=== PATIENT | female | born 1970 | race Caucasian/White ===

== ENCOUNTER → 2017-07-17 | Outpatient (CLI) | payer BC, OTHER ==
[2017-07-17 13:52] LABS: BLOOD UREA NITROGEN 5 mg/dl (7-18); BUN/CREATININE RATIO 7.5 (10-20); CALCIUM 9.1 mg/dl (8.5-10.1); CARBON DIOXIDE 24 mmol/L (21-32); CHLORIDE 108 mmol/L (98-107); CREATININE 0.67 mg/dl (0.60-1.20); GLUCOSE 97 mg/dl (70-99); POTASSIUM 4.1 mmol/L (3.5-5.1); SODIUM 140 mmol/L (136-145)
[2017-07-17 13:54] LABS: ALT/SGPT 30 U/L (12-78); CHOLESTEROL 174 mg/dl (0-200); CHOLESTEROL/HDL RATIO 3.6; HDL CHOLESTEROL 48 mg/dl; LDL CHOLESTEROL CALCULATED 97 mg/dl; TRIGLYCERIDES 144 mg/dl (0-150); VERY LOW DENSITY LIPOPROT CALC 29 mg/dl
== END | disposition home or self-care (01) ==
LOC: C.LABMFLN 08:36
PROVIDERS: ATTEND Family Medicine
DX: Z00.00 Encounter for general adult medical examination without abnormal findings (principal); I10 Essential (primary) hypertension; E78.5 Hyperlipidemia, unspecified; G62.9 Polyneuropathy, unspecified; E03.9 Hypothyroidism, unspecified; E53.8 Deficiency of other specified B group vitamins

== ENCOUNTER → 2017-10-23 | Outpatient (CLI) | payer BC, OTHER ==
[2017-10-23 18:08] LABS: THYROID STIMULATING HORMONE 5.7 uIu/ml (0.300-4.500)
== END | disposition home or self-care (01) ==
LOC: C.LABMFLN 14:42
PROVIDERS: ATTEND Family Medicine
DX: E03.9 Hypothyroidism, unspecified (principal)

== ENCOUNTER 2017-12-11 06:12 | Inpatient (IN) | payer BC, OTHER ==
[2017-11-30 12:54] VITALS: BMI 29.0
--- NOTE | 2017-11-30 13:22 | PAT Medication Instructions ---
Service Date Nov 30, 2017. Current Home Medication List Atenolol (Tenormin), 50 MG PO QAM Cyanocobalamin (Vitamin B12 500MCG), 250 MCG PO QAM Duloxetine HCl (Cymbalta), 1 CAP PO QAM Fenofibrate (Tricor ), 145 MG PO QAM Fexofenadine-Pseudoephedrine (Amee-D 24 Hour Allergy), 1 TAB PO BID PRN for RN Hydrocodone/Acetaminophen 7.5MG/325MG ([place] 7.5MG/325MG), 1 TAB PO TID PRN for N Levothyroxine Sodium (Levothyroxine Sodium), 1 TAB PO QAM Pyridoxine (Vitamin B6), 100 MG PO BID Tizanidine (Zanaflex), 2-4 MG PO BID Medication Instructions For Your Scheduled Surgery - Hold the following medications the morning of surgery: Tizanidine (Zanaflex), 2-4 MG PO BID Pyridoxine (Vitamin B6), 100 MG PO BID Fexofenadine-Pseudoephedrine (Amee-D 24 Hour Allergy), 1 TAB PO BID PRN for RN Fenofibrate (Tricor ), 145 MG PO QAM Cyanocobalamin (Vitamin B12 500MCG), 250 MCG PO QAM - Take the following medications the morning of surgery with a sip of water: Levothyroxine Sodium (Levothyroxine Sodium), 1 TAB PO QAM Hydrocodone/Acetaminophen 7.5MG/325MG ([place] 7.5MG/325MG), 1 TAB PO TID PRN for N (okay to take up to 4 hours prior to surgery if needed) Duloxetine HCl (Cymbalta), 1 CAP PO QAM Atenolol (Tenormin), 50 MG PO QAM - Take the following medications as scheduled the night before surgery: Tizanidine (Zanaflex), 2-4 MG PO BID Pyridoxine (Vitamin B6), 100 MG PO BID Hydrocodone/Acetaminophen 7.5MG/325MG ([place] 7.5MG/325MG), 1 TAB PO TID PRN for N (if needed) If you have any questions please call us at [phone] or [phone] or [phone]
[2017-11-30 13:29] LABS: BASO % 0.8 %; BASO ABS # 0.05 K/uL (0-0.2); EOS % 5.1 %; EOS ABS # 0.32 K/uL (0-0.5); HEMATOCRIT 42.3 % (37-47); HEMOGLOBIN 14.3 g/dL (12.0-16.0); IG# 0.02 K/uL (0.00-0.02); LYMPH % 22.4 %; LYMPH ABS # 1.41 K/uL (1.2-3.4); MEAN CELL VOLUME 88.7 fL (80-100); MEAN CORPUSCULAR HGB CONC 33.8 g/dl (32-36); MEAN PLATELET VOLUME 10.1 fL (7.4-10.4); MONO % 9.5 %; NEUT % 61.9 %; NEUT ABS # 3.89 K/uL (1.4-6.5); PLATELET COUNT 300 K/uL (130-400); RED CELL DISTRIBUTION WIDTH CV 13.6 % (11.5-14.5); RED CELL DISTRIBUTION WIDTH SD 44.6 fL (36.4-46.3); WHITE BLOOD COUNT 6.29 K/uL (4.8-10.8)
--- NOTE | 2017-11-30 13:40 | DIAGNOSTIC IMAGING REPORT ---
CHEST 2 VIEWS ROUTINE HISTORY: Preop. COMPARISON: None. FINDINGS: The lungs are clear. Cardiac silhouette is normal in size. No pleural effusions. No pneumothorax. IMPRESSION: No acute process. Electronically signed by: Benigno Ling M.D. 11/30/2017 1:39 PM Dictated Date/Time: 11/30/2017 1:36 PM
[2017-11-30 14:08] LABS: CALCIUM 9.2 mg/dl (8.5-10.1); CREATININE 0.66 mg/dl (0.60-1.20); POTASSIUM 3.6 mmol/L (3.5-5.1)
[2017-12-11] VITALS (15 sets, daily range): BP systolic 100–125; BP diastolic 62–80; PULSE 59–70; TEMP 36.5–36.9; O2SAT 93–99; Ht 157.5 cm; Wt 73.7 kg
[~2017-12-11] VITALS: Ht 157.5 cm; Wt 73.7 kg
[~2017-12-11 06:12] MED LIST: ATEN50TA8 PO; CEFAZOLIN 1000MG IV PUSH 7.5 ML IV SCH; CYAN500T13 PO; CYM/30 PO; FENO145T26 PO; FEXO1TAB58 PO; HYDR-3983 PO; LACTATED RINGER'S 1000ML 1,000 ML IV SCH; LEVO75TA5 PO; PYRI100T4 PO; TIZA4CAP PO
[2017-12-11] MEDS ORDERED: MIDAZOLAM HCL 1 MG/ML 2ML VIAL ONE (06:50)
[2017-12-11] MEDS ORDERED: FENTANYL CITRATE INJ 50 MCG/1 ML 2 ML VIAL ONE ×2 (06:50→08:02)
[2017-12-11] MEDS ORDERED: BACITRACIN 50000 UNIT VIAL ONE (07:00)
[2017-12-11] MEDS ORDERED: SODIUM CHLORIDE 0.9% PF 50 ML VIAL ONE (07:00)
--- NOTE | 2017-12-11 07:26 | History & Physical Bridge Note ---
H&P Re-Evaluation Bridge Note: I have examined the patient, reviewed the History & Physical and in the interval since the performance of the History & Physical I have noted the following changes of clinical significance: No changes noted
--- NOTE | 2017-12-11 07:27 | History and Physical ---
History & Physical Date Dec 11, 2017. Chief Complaint Neck and arm pain History of Present Illness The patient is a 47 year old female with complaints of neck and arm pain Additional History Hepatic Disease: No Endocrine Disorder: No Kidney Disease: No Hypertension: Yes Heart Disease: No Bleeding Tendencies: No Infectious Diseases: No Allergies Coded Allergies: Adhesives (Verified Adverse Reaction, Mild, RED ITCHY IRRITATED, 12/08/17) Meloxicam (Verified Adverse Reaction, Mild, GI UPSET, 12/11/17) Home Medications Scheduled Atenolol (Tenormin), 50 MG PO QAM Cyanocobalamin (Vitamin B12 500MCG), 250 MCG PO QAM Duloxetine HCl (Cymbalta), 1 CAP PO QAM Fenofibrate (Tricor ), 145 MG PO QAM Levothyroxine Sodium (Levothyroxine Sodium), 1 TAB PO QAM Pyridoxine (Vitamin B6), 100 MG PO BID Tizanidine (Zanaflex), 2-4 MG PO BID Scheduled PRN Fexofenadine-Pseudoephedrine (Amee-D 24 Hour Allergy), 1 TAB PO BID PRN for RN Hydrocodone/Acetaminophen 7.5MG/325MG ([place] 7.5MG/325MG), 1 TAB PO TID PRN for N Physical Examination Skin: warm/dry, no rash Eyes: normal inspection, EOMI, sclerae normal ENT: normal ENT inspection, pharynx normal Head: normocephalic, atraumatic Neck: supple, no adenopathy, trachea midline Respiratory/Chest: lungs clear, normal breath sounds, no respiratory distress Cardiovascular: regular rate, rhythm, no edema, no murmur Abdomen / GI: normal bowel sounds, non tender Back: normal inspection Extremities: normal inspection, normal range of motion Neurologic/Psych: no motor/sensory deficits, alert, normal reflexes, oriented x 3 Diagnosis Cervical spinal stenosis Plan of Treatment ACDF C6 7
[2017-12-11] MEDS ORDERED: ATROPINE SULFATE 0.1 MG/ML 5ML SYR IV PRN (07:45)
[2017-12-11] MEDS ORDERED: EpHEDrine SULFATE INJ 50 MG/ML AMP IV PRN (07:45)
[2017-12-11] MEDS ORDERED: MoRPHine SULFATE 10 MG/ML CARP/VIAL IV PRN (07:45)
[2017-12-11] MEDS ORDERED: ONDANSETRON INJ 2 MG/ML 2 ML VIAL IV PRN ×2 (07:45→09:45)
[2017-12-11] MEDS ORDERED: HYDROmorphone INJ 2 MG/ML SYR/VIAL ONE (08:02)
[2017-12-11] MEDS ORDERED: ONDANSETRON INJ 2 MG/ML 2 ML VIAL ONE ×2 (08:18)
[2017-12-11] MEDS ORDERED: PROPOFOL IV EMULSION 10 MG/ML 20 ML VIAL IV ONE (08:18)
[2017-12-11] MEDS ORDERED: LIDOCAINE HCL 2% 2 ML VIAL (20MG/ML) ONE (08:18)
[2017-12-11] MEDS ORDERED: DEXAMETHASONE SOD INJ 4 MG/ML VIAL ONE (08:18)
[2017-12-11] MEDS ORDERED: NEOSTIGMINE METHYLSULFATE 1 MG/ML 10ML VIAL ONE (08:18)
[2017-12-11] MEDS ORDERED: ROCURONIUM BROMIDE 10 MG/ML 5 ML VIAL IV ONE (08:18)
[2017-12-11] MEDS ORDERED: GLYCOPYRROLATE INJ 0.2 MG/ML VIAL ONE (08:18)
[2017-12-11] MEDS ORDERED: FLOSEAL HEMOSTATIC MATRIX 5ML TOP ONE (08:44)
--- NOTE | 2017-12-11 08:54 | [facility] Operative Report ---
Operative Report Operative Date Dec 11, 2017. Pre-Operative Diagnosis Cervical spinal stenosis Post-Operative Diagnosis Cervical spinal stenosis Procedure(s) Performed #1 anterior cervical discectomy bilateral foraminotomies C67. #2 anterior cervical arthrodesis C6 7. #3 placement of cortical autograft 7 mm in height filled with DBM C6 7. #4 application of montilla plate and screws across C6 7. Surgeon Dr. Kalyan Ritter Rn Appeals Surgeon(s) Justice Butler PA-C Estimated Blood Loss 10ml Findings Severe spinal stenosis Specimens none per surgeon Anesthesia Type General Description of Procedure Patient was met with preoperatively case discussed all questions addressed. After informed consent obtained patient was taken to the operative suite underwent intubation and placed in a supine position the head in the [place] headholder. All bony prominences were well-padded the eyes were inspected to ensure no external pressure placed upon them. This point the anterior cervical spine was prepped and draped in the normal sterile fashion. With the assistance of fluoroscopy the C6 7 disc space was identified. Sharp dissection with the assistance of bipolar electrocautery was performed onto an exposing the anterior cervical spine at C6 7. Self-retaining retractors placed. Then performed a complete discectomy of C6 7 out to the uncovertebral joints bilaterally. Robert distracting pins utilized assistance no visualization. Removed all posterior inner fibers longitude ligament and perform bilateral foraminotomies. Endplates were then burred to subcortical bleeding bone and a 7 mm cortical allograft filled with DBM tapped in position. Distracting apparatus was removed all anterior aspect produced with cortical surface. Montilla plate and screws applied with the assistance of fluoroscopy. Incision was then copiously irrigated explored to ensure there was no damage to surrounding structures remaining bleeding. 10 round LEROY drain inserted. Incision was then closed with 2-0 Vicryl the fascia 4 Monocryl for final closure Steri-Strips dressings placed. Patient will continue PACU stable condition. Please note Justice Butler was present at the entire procedure involved in patient positioning complex portions of the surgery and final skin closure. I attest to the content of the Intraoperative Record and any orders documented therein. Any exceptions are noted below.
--- NOTE | 2017-12-11 09:11 | DIAGNOSTIC IMAGING REPORT ---
INTRAOPERATIVE RADIOGRAPHS CLINICAL HISTORY: C6-C7 spinal fusion. Fluoroscopy time: 13 seconds. FINDINGS: 3 spot fluoroscopic views of the cervical spine are presented. There is evidence of anterior fusion at C6-C7. The orthopedic hardware appears intact. An endotracheal tube is in place. IMPRESSION: Intraoperative images from C6 -C7 spinal fusion as above. Electronically signed by: Sarbjit Sam M.D. 12/11/2017 9:09 AM Dictated Date/Time: 12/11/2017 9:08 AM
[2017-12-11] MEDS: FENTANYL CITRATE INJ 50 MCG/1 ML 2 ML VIAL IV PRN ×4 (09:22→09:37)
[2017-12-11] MEDS ORDERED: ACETAMINOPHEN IV 1,000 MG in EMPTY BAG 0 ML IV PRN (09:45)
[2017-12-11] MEDS ORDERED: NALOXONE HCL 0.4 MG/1 ML VIAL/CARP IV PRN (09:45)
[2017-12-11] MEDS ORDERED: MAGNESIUM HYDROXIDE SUSP 30 ML UDC PO PRN (09:45)
[2017-12-11] MEDS ORDERED: DEXAMETHASONE INJ 8 MG in SYRINGE 0 ML IV PRN (09:45)
[2017-12-11] MEDS ORDERED: RACEPINEPHRINE 2.25% NEBU SOLN 0.5 ML VIAL INH PRN (09:45)
[2017-12-11] MEDS ORDERED: DO NOT ADMINISTER PNEUMOCOCCAL VACCINE PRN (09:45)
[2017-12-11] MEDS ORDERED: DiphenhydrAMINE HCL 50 MG/ML VIAL IV PRN (09:45)
[2017-12-11] MEDS ORDERED: LORAZEPAM 0.5 MG TAB PO PRN (09:45)
[2017-12-11] MEDS ORDERED: CEFAZOLIN IV 1,000 MG in DEXTROSE 5% 50ML 50 ML IV SCH (09:45)
[2017-12-11] MEDS ORDERED: HYDROmorphone INJ 0.5 MG/0.5 ML SYR IV PRN (09:45)
[2017-12-11] MEDS ORDERED: LORAZEPAM INJ 0.5 MG in SYRINGE 0.75 ML IV PRN (09:45)
[2017-12-11] MEDS ORDERED: DO NOT ADMINISTER FLU VACCINE PRN (09:45)
--- NOTE | 2017-12-11 10:23 | Anesthesiology Progress Note ---
Anesthesia Post Op Note Date & Time Dec 11, 2017 at 10:22 Vital Signs Pain Intensity: 4 Vital Signs Past 12 Hours Date Time Temp Pulse Resp B/P (MAP) Pulse Ox O2 Delivery O2 Flow Rate FiO2 12/11/17 10:15 78 16 106/80 97 Nasal Cannula 3 12/11/17 10:05 36.9 68 16 133/69 96 Nasal Cannula 3 12/11/17 09:55 66 16 141/75 96 Nasal Cannula 3 12/11/17 09:45 63 16 134/61 94 Nasal Cannula 3 12/11/17 09:35 67 16 145/82 96 Oxymask 3 12/11/17 09:25 68 15 148/79 97 Oxymask 5 12/11/17 09:15 66 15 130/76 96 Oxymask 10 12/11/17 09:08 36.1 64 14 123/76 94 Oxymask 10 12/11/17 06:36 36.8 64 18 110/67 (81) 99 Room Air Notes Mental Status: alert / awake / arousable, participated in evaluation Pt Amnestic to Procedure: Yes Nausea / Vomiting: adequately controlled Pain: adequately controlled Airway Patency, RR, SpO2: stable & adequate BP & HR: stable & adequate Hydration State: stable & adequate Anesthetic Complications: no major complications apparent
[2017-12-11] MEDS: LACTATED RINGER'S 1000ML 1,000 ML IV SCH ×2 (10:25→16:51)
[2017-12-11] MEDS: OXYCODONE HCL IR 5 MG TAB (IMMEDIATE RELEASE) PO PRN ×3 (11:04→21:07)
[2017-12-11] MEDS ORDERED: SCOPOLAMINE 1.5 MG TDSY TD SCH (12:00)
[2017-12-11] MEDS: CHECK SCOPOLAMINE PATCH PLACEMENT SCH ×2 (16:16→22:59)
[2017-12-11] MEDS: CEFAZOLIN IV 1,000 MG in SYRINGE 0 ML IV SCH ×2 (16:17→23:04)
[2017-12-11] MEDS: PYRIDOXINE HCL 50 MG TAB PO SCH (21:06)
[2017-12-11] MEDS: DOCUSATE SODIUM 100 MG CAP PO SCH (21:06)
[2017-12-12] VITALS (12 sets, daily range): BP systolic 100–125; BP diastolic 59–75; PULSE 60–66; TEMP 36.5–36.9; O2SAT 93–98
[2017-12-12] MEDS: LACTATED RINGER'S 1000ML 1,000 ML IV SCH (05:39)
[2017-12-12] MEDS: OXYCODONE HCL IR 5 MG TAB (IMMEDIATE RELEASE) PO PRN ×2 (05:41→09:41)
[2017-12-12] MEDS ORDERED: LEVOTHYROXINE 75 MCG TAB PO SCH (06:00)
[2017-12-12] MEDS ORDERED: RXC5 PO (07:27)
--- NOTE | 2017-12-12 07:30 | Discharge Instructions ---
Discharge Instructions Date of Service Dec 12, 2017. Admission Reason for Admission: Cervical Spinal Stenosis Discharge Discharge Diagnosis / Problem: Cervical disc herniation Discharge Goals Goal(s): Improve function Activity Recommendations Activity Limitations: as noted below Lifting Limitations: no more than 5 pounds . Instructions / Follow-Up Instructions / Follow-Up ACTIVITY RECOMMENDATIONS: SELF CARE INSTRUCTIONS AFTER CERVICAL FUSIONS 1. No smoking. Smoking drastically decreases the chance of a solid fusion. 2. No bending, lifting more than 5 pounds, or twisting (roll like a log when turning in bed). 3. You may shower 3 days after surgery. Thoroughly dry wound. Do not soak in the tub. 4. Cervical collar: Must be worn at all times including sleeping. You may remove the brace only to bath, eat and if you are sitting in a recliner. 5. Please walk as much as you can for exercise. Gradually increase the distance that you walk as your endurance increases. SPECIAL CARE INSTRUCTIONS: VERY IMPORTANT TO READ AND REVIEW A. Do not take any anti-inflammatory medications (i.e. Indocin, Advil, Aspirin, Naprosyn, Aleve, Motrin, etc.) as these may inhibit the chance of a solid fusion. Tylenol is okay to take. B. Your surgical incision has been closed with a cosmetic suture under the skin that will dissolve in about 6 weeks. In 14 days, you can use a pair of clean scissors and cut the suture that is left outside of the skin at the ends of your incision. C. Complications are uncommon, but please contact us if you have any signs or symptoms of: 1. wound infection (fever higher than 102.5 degrees F, redness, separation of wound, drainage, or increasing pain from the incision) 2. blood clots in legs (pain, swelling, redness and warmth in legs) 3. urinary tract infection (fever higher than 102.5 degrees, burning upon urination or increased frequency of urination) 4. nerve problems (inability to walk on your toes or heels, numbness, loss of bowel or bladder control) 5. any other symptoms that concern you. D. Please call the office at if you have any concerns or questions about your operation or recovery. MANAGING PAIN AFTER SPINAL SURGERY 1. Narcotic medication is intended for short-term use and will be provided for surgical pain. Surgical pain usually lasts for a period of 4-6 weeks. Narcotic medication includes Percocet, Vicodin, Darvocet, Tylenol #3 or Lortab. 2. Longer-term pain is more appropriately treated with non-narcotic medication such as Tylenol ES. 3. Muscle spasm is not appropriately treated with narcotics. Muscle relaxers such as Soma, Flexeril or Skelaxin can be used along with Tylenol ES. 4. Remember that we all live with some "aches and pains". This is not unusual or uncommon after an injury or as we get older. 5. We will provide appropriate medication within the normal guidelines of their prescribed use. We will also be very cautious and aware of potential abuse and extended duration of patients' medication needs. 6. Please allow 2-3 days to process refills. Prescriptions will not be mailed but must be picked up at the office. FOLLOW UP VISIT: Keep your scheduled follow-up appointment. Any questions, please call the office at . Current Hospital Diet Patient's current hospital diet: Clear Liquid Diet Discharge Diet Recommended Diet: Regular Diet Procedures Procedures Performed: #1 anterior cervical discectomy bilateral foraminotomies C67. #2 anterior cervical arthrodesis C6 7. #3 placement of cortical autograft 7 mm in height filled with DBM C6 7. #4 application of montilla plate and screws across C6 7. Pending Studies Studies pending at discharge: no Medical Emergencies . Who to Call and When: Medical Emergencies: If at any time you feel your situation is an emergency, please call 911 immediately. . Non-Emergent Contact Non-Emergency issues call your: Primary Care Provider Call Non-Emergent contact if: wound has increased pain . "Provider Documentation" section prepared by Justice Butler. . VTE Core Measure Inpt VTE Proph given/why not?: Chandrika Brasher
[2017-12-12] MEDS: PYRIDOXINE HCL 50 MG TAB PO SCH (08:14)
[2017-12-12] MEDS: DOCUSATE SODIUM 100 MG CAP PO SCH (08:14)
[2017-12-12] MEDS: CHECK SCOPOLAMINE PATCH PLACEMENT SCH (08:14)
[2017-12-12] MEDS: CEFAZOLIN IV 1,000 MG in SYRINGE 0 ML IV SCH (08:14)
[2017-12-12] MEDS ORDERED: DULOXETINE (CYMBALTA) 30 MG CAP PO SCH (09:00)
[2017-12-12] MEDS ORDERED: FENOFIBRATE 145 MG TAB PO SCH (09:00)
[2017-12-12] MEDS ORDERED: CYANOCOBALAMIN 500 MCG TAB (VIT B-12) PO SCH (09:00)
[2017-12-13] MEDS ORDERED: BISACODYL 5 MG TABEC PO PRN (06:00)
[2017-12-13] MEDS ORDERED: BISACODYL 10 MG SUPP PR PRN (06:00)
[2017-12-14] MEDS ORDERED: POLYETHYLENE (MIRALAX) 17 GM PACK PO SCH (09:00)
== END 2017-12-12 09:55 | disposition home or self-care (01) | DRG 473 ==
LOC: C.ACU 06:12 → C.3E 07:30 → ENRESERV 09:58
PROVIDERS: ADMIT Orthopaedic Surgery Orthopaedic Surgery of the Spine; ATTEND Orthopaedic Surgery Orthopaedic Surgery of the Spine
PROC: 0RG1070 Fusion of Cervical Vertebral Joint with Autologous Tissue Substitute, Anterior Approach, Anterior Column, Open Approach (ICD-10-PCS; principal; 2017-12-11 07:45)
PROC: 0RT30ZZ Resection of Cervical Vertebral Disc, Open Approach (ICD-10-PCS; principal; 2017-12-11 07:45)
DX: M48.02 Spinal stenosis, cervical region (principal); M54.12 Radiculopathy, cervical region; I10 Essential (primary) hypertension; E78.5 Hyperlipidemia, unspecified; E03.9 Hypothyroidism, unspecified; F17.200 Nicotine dependence, unspecified, uncomplicated; Z79.899 Other long term (current) drug therapy; Z88.6 Allergy status to analgesic agent